=== PATIENT | female | born 1945 | race Caucasian/White ===

== ENCOUNTER → 2018-05-15 | Outpatient (CLI) | payer MEDICARE, BC ==
[~2018-05-15] MED LIST: ALBU8.5H8 INH; ATOR10TA PO; FLUT12AE2 INH; LEVO50TA5 PO
[2018-05-15 12:44] LABS: BASOPHILS # (AUTO) 0.03 x10^3/uL (0-0.1); BASOPHILS % (AUTO) 1 % (0-1); EOSINOPHILS # (AUTO) 0.14 x10^3/uL (0-0.4); EOSINOPHILS % (AUTO) 3 % (1-7); LYMPHOCYTES # (AUTO) 1.87 x10^3/uL (1-3.4); LYMPHOCYTES % (AUTO) 39 % (22-44); MD NO; MEAN CORPUSCULAR HEMOGLOBIN 31.8 pg (27.0-34.8); MEAN CORPUSCULAR HGB CONC 33.9 g/dL (32.4-35.8); MEAN CORPUSCULAR VOLUME 93.7 fL (80-100); MEAN PLATELET VOLUME 8.8 fL (7.4-10.4); MONOCYTES # (AUTO) 0.46 x10^3/uL (0.2-0.8); MONOCYTES % (AUTO) 10 % (2-9); NEUTROPHILS # (AUTO) 2.32 x10^3/uL (1.8-6.8); NEUTROPHILS % (AUTO) 48 % (42-75); PLATELET COUNT 303 x10^3/uL (130-400); RED BLOOD COUNT 4.37 x10^6/uL (3.82-5.3); RED CELL DISTRIBUTION WIDTH 13.3 % (9.6-15.2)
== END | disposition home or self-care (01) ==
LOC: STAR 11:10
PROVIDERS: ATTEND Orthopaedic Surgery
DX: Z01.818 Encounter for other preprocedural examination (principal); M17.0 Bilateral primary osteoarthritis of knee
CPT/HCPCS: 36415; 85025; 87081; 87147; 87806; 93005; G0475

== ENCOUNTER 2018-05-19 10:01 | Observation (INO) | payer MEDICARE, BC ==
[~2018-05-19] VITALS: Ht 154.9 cm; Wt 71.9 kg
[2018-05-19] MEDS ORDERED: GABAPENTIN 300 MG CAPSULE PO ONE (10:30)
[2018-05-19] MEDS ORDERED: ACETAMINOPHEN 500 MG TABLET PO ONE (10:30)
[2018-05-19] MEDS ORDERED: FAMOTIDINE 20 MG TABLET PO ONE (10:30)
[2018-05-19] MEDS ORDERED: LACTATED RINGERS 1,000 ML IV SCH (10:54)
[2018-05-19 11:00] LABS: MICROSCOPIC NOT IND
[2018-05-19] MEDS ORDERED: VANCOMYCIN PMX 1GM/200ML 200 ML IV ONE (11:00)
[2018-05-19 11:02] LABS: CULTURE INDICATED? NO
[2018-05-19] MEDS ORDERED: FENTANYL PF 250 MCG/5ML ONE (11:26)
[2018-05-19] MEDS ORDERED: KETOROLAC 60 MG/2 ML ONE (12:33)
[2018-05-19] MEDS ORDERED: ROPIvacaine/PF 0.2%, 20 ML ONE (12:33)
[2018-05-19] MEDS ORDERED: TRANEXAMIC ACID 100 MG/ML, 10ML ONE (12:33)
[2018-05-19] MEDS ORDERED: BACITRACIN 50,000 UNIT ONE (12:34)
[2018-05-19] MEDS ORDERED: SODIUM CHLORIDE 0.9% 100 ML ONE (12:34)
[2018-05-19] MEDS ORDERED: morphine SULFATE/PF 1 MG/ML, 10ML ONE (12:34)
[2018-05-19] MEDS ORDERED: EPINEPHRINE 1 MG/ML, 1ML ONE (12:34)
[2018-05-19] MEDS ORDERED: ROCURONIUM 10MG/ML,5ML ONE (13:06)
[2018-05-19] MEDS ORDERED: CEFAZOLIN 1,000 MG ONE (13:48)
[2018-05-19] MEDS ORDERED: ONDANSETRON 2MG/ML, 2ML ONE (13:48)
[2018-05-19] MEDS ORDERED: DEXAMETHASONE 4 MG/ML, 1ML ONE (13:48)
[2018-05-19] MEDS ORDERED: PROPOFOL 10 MG/ML, 20ML ONE (13:48)
[2018-05-19] MEDS ORDERED: OXYcodone 5 MG/5 ML ORAL.SOL UDC ONE (14:57)
[2018-05-19] MEDS ORDERED: FENTANYL PF 100 MCG/2ML ONE (14:57)
[2018-05-19] MEDS ORDERED: HYDROmorphone 2 MG/ML, 1ML ONE (14:57)
[2018-05-19] MEDS: FENTANYL PF 100 MCG/2ML IV PRN ×2 (14:58→15:12)
[2018-05-19] MEDS ORDERED: LORazepam 2 MG/ML, 1ML IVPush PRN (15:00)
[2018-05-19] MEDS ORDERED: TRANEXAMIC ACID 1,000 MG in SODIUM CHLORIDE 0.9% 100 ML IV ONE (15:00)
[2018-05-19] MEDS ORDERED: OXYcodone/APAP 7.5/325MG TABLET PO PRN (15:00)
[2018-05-19] MEDS ORDERED: morphine SULFATE 10 MG/ML, 1ML IVPush PRN (15:00)
[2018-05-19] MEDS ORDERED: ONDANSETRON 2MG/ML, 2ML IVPush PRN (15:00)
[2018-05-19] MEDS ORDERED: ZOLPIDEM 5MG TABLET PO PRN (15:00)
[2018-05-19] MEDS ORDERED: ACETAMINOPHEN 325 MG TABLET PO PRN (15:00)
[2018-05-19] MEDS ORDERED: DIPHENHYDRAMINE 50 MG CAPSULE PO PRN (15:00)
[2018-05-19] MEDS ORDERED: OXYcodone 5 MG/5 ML ORAL.SOL UDC PO PRN (15:30)
[2018-05-19] MEDS ORDERED: PROMETHAZINE 25 MG/ML, 1ML IV PRN (15:30)
[2018-05-19] MEDS ORDERED: HYDROmorphone 2 MG/ML, 1ML IVPush PRN (15:30)
[2018-05-19] MEDS ORDERED: MEPERIDINE/PF 25MG/0.5ML IVPush PRN (15:30)
[2018-05-19 16:05] VITALS: BP 102/59
[2018-05-19] MEDS: D5%-0.45% NACL 1,000 ML IV SCH ×2 (16:26→20:04)
[2018-05-19] MEDS ORDERED: ALBUTEROL SULFATE 2.5 MG/3 ML NPPB PRN (16:30)
[2018-05-19] MEDS ORDERED: CEFAZOLIN PMX 1GM/50ML 50 ML IVPB SCH (16:30)
[2018-05-19 19:35] VITALS: BP 100/65
[2018-05-19] MEDS ORDERED: ATORVASTATIN 10 MG TABLET PO SCH (21:00)
[2018-05-19] MEDS ORDERED: BUDESONIDE 0.5 MG/2 ML INHA NPPB SCH (21:00)
[2018-05-19] MEDS: CEFAZOLIN PMX 1GM/50ML 50 ML IVPB SCH (21:11)
[2018-05-19 23:18] VITALS: BP 102/69
[2018-05-20] MEDS: D5%-0.45% NACL 1,000 ML IV SCH ×3 (00:48→12:09)
[2018-05-20 04:03] VITALS: BP 85/44
[2018-05-20 04:55] VITALS: BP 93/38
[2018-05-20] MEDS: CEFAZOLIN PMX 1GM/50ML 50 ML IVPB SCH (04:56)
[2018-05-20] MEDS ORDERED: LEVOTHYROXINE 50 MCG TABLET PO SCH (06:00)
[2018-05-20 06:45] VITALS: BP 78/49
[2018-05-20 07:04] VITALS: BP 93/56
[2018-05-20] MEDS ORDERED: VANCOMYCIN PMX 1GM/200ML 200 ML IVPB ONE (11:30)
[2018-05-20 12:42] VITALS: BP_SYST 111; BP_SYST 85; BP_DIAS 47; BP_DIAS 60
[2018-05-20] MEDS ORDERED: ASPIRIN 325 MG TABLET EC PO SCH (17:00)
[2018-05-20] MEDS ORDERED: DOCUSATE 100 MG CAPSULE PO SCH (21:00)
== END 2018-05-20 14:08 | disposition home or self-care (01) ==
LOC: OUT 10:01 → 4NOR 16:06 → DCLOUNGE 05-20 13:54
PROVIDERS: ADMIT Orthopaedic Surgery; ATTEND Orthopaedic Surgery
DX: M17.12 Unilateral primary osteoarthritis, left knee (principal); Z79.899 Other long term (current) drug therapy
CPT/HCPCS: 27447; 36415; 73564; 81003; 85018; 96365; 96366; 96367; 96375; 97116; 97150; 97161; 97165; C1713; C1776; G0378; J0171; J0690; J1100; J1170; J1885; J2274; J2405; J2704; J2795; J3010; J3370; J7120